=== PATIENT | male | born 1940 | race Caucasian/White ===

== ENCOUNTER → 2019-08-16 10:21 | Outpatient (REF) | payer OTHER, SELFPAY | LOC: ANHLAB 10:21 | PROVIDERS: PCP Internal Medicine; Visit Provider Nurse Practitioner | DX: D49.2 Neoplasm of unspecified behavior of bone, soft tissue, and skin (principal); C44.519 Basal cell carcinoma of skin of other part of trunk; C44.311 Basal cell carcinoma of skin of nose; C44.619 Basal cell carcinoma of skin of left upper limb, including shoulder | CPT/HCPCS: 88305 ==

== ENCOUNTER → 2019-09-19 07:56 | Outpatient (REF) | payer OTHER, SELFPAY | LOC: ANHLAB 07:56 | PROVIDERS: PCP Internal Medicine; Visit Provider Nurse Practitioner | DX: C44.519 Basal cell carcinoma of skin of other part of trunk (principal); C44.619 Basal cell carcinoma of skin of left upper limb, including shoulder | CPT/HCPCS: 88305; 88331; 88332 ==

== ENCOUNTER → 2019-10-03 07:59 | Outpatient (REF) | payer OTHER, SELFPAY | LOC: ANHLAB 07:59 | PROVIDERS: PCP Internal Medicine; Visit Provider Nurse Practitioner | DX: C44.311 Basal cell carcinoma of skin of nose (principal); C44.519 Basal cell carcinoma of skin of other part of trunk | CPT/HCPCS: 88305; 88331 ==

== ENCOUNTER → 2020-05-22 09:02 | Outpatient (REF) | payer OTHER, SELFPAY | LOC: ANHLAB 09:02 | PROVIDERS: PCP Internal Medicine; Visit Provider Nurse Practitioner | DX: L81.4 Other melanin hyperpigmentation (principal) | CPT/HCPCS: 88305 ==

== ENCOUNTER → 2020-11-27 08:21 | Outpatient (REF) | payer OTHER, SELFPAY | LOC: ANHLAB 08:21 | PROVIDERS: PCP Internal Medicine; Visit Provider Nurse Practitioner | DX: C44.212 Basal cell carcinoma of skin of right ear and external auricular canal (principal); C44.519 Basal cell carcinoma of skin of other part of trunk | CPT/HCPCS: 88305 ==

== ENCOUNTER → 2021-01-14 07:14 | Outpatient (REF) | payer OTHER, SELFPAY | LOC: ANHLAB 07:14 | PROVIDERS: PCP Internal Medicine; Visit Provider Nurse Practitioner | DX: C44.519 Basal cell carcinoma of skin of other part of trunk (principal); C44.319 Basal cell carcinoma of skin of other parts of face | CPT/HCPCS: 88305; 88331 ==

== ENCOUNTER 2021-02-05 12:27 | Outpatient (CLI) | payer OTHER, SELFPAY ==
[2021-02-05 13:57] LABS: SARS-CoV-2 RNA PCR Negative (Negative)
== END 2021-02-05 12:28 | disposition home or self-care (01) ==
PROVIDERS: PCP Internal Medicine; Visit Provider Internal Medicine
DX: R68.89 Other general symptoms and signs (principal); Z20.822 Contact with and (suspected) exposure to COVID-19
CPT/HCPCS: C9803; U0003; U0005

== ENCOUNTER 2021-02-12 09:03 | Outpatient (CLI) | payer OTHER, SELFPAY ==
[2021-02-12 11:16] LABS: SARS-CoV-2 RNA PCR Positive (Negative)
== END 2021-02-12 09:04 | disposition home or self-care (01) ==
LOC: CHSLAB 09:04
PROVIDERS: PCP Internal Medicine; Visit Provider Internal Medicine
DX: U07.1 COVID-19 (principal); R68.89 Other general symptoms and signs
CPT/HCPCS: C9803; U0003; U0005

== ENCOUNTER → 2021-04-30 14:13 | Outpatient (REF) | payer OTHER, SELFPAY | LOC: ANHLAB 14:13 | PROVIDERS: PCP Internal Medicine; Visit Provider Nurse Practitioner | DX: C44.519 Basal cell carcinoma of skin of other part of trunk (principal) | CPT/HCPCS: 88305 ==

== ENCOUNTER → 2021-06-10 07:45 | Outpatient (REF) | payer OTHER, SELFPAY | LOC: ANHLAB 07:45 | PROVIDERS: PCP Internal Medicine; Visit Provider Nurse Practitioner | DX: C44.519 Basal cell carcinoma of skin of other part of trunk (principal) | CPT/HCPCS: 88305; 88331 ==

== ENCOUNTER 2021-11-05 13:00 | Outpatient (NON) | payer OTHER, SELFPAY | END 2021-11-05 13:01 | disposition home or self-care (01) | PROVIDERS: PCP Family Medicine; Visit Provider Nurse Practitioner | DX: D22.62 Melanocytic nevi of left upper limb, including shoulder (principal) | CPT/HCPCS: 88305; 88342 ==

== ENCOUNTER 2022-04-08 10:04 | Outpatient (CLI) | payer OTHER, SELFPAY ==
[2022-04-08 19:17] LABS: Alanine Aminotransferase 33 U/L (6-50); Albumin Level 4.4 g/dL (3.5-5.1); Alkaline Phosphatase 71 U/L (38-126); Anion Gap 3 mmol/L (8-16); Aspartate Amino Transferase 47 U/L (17-59); Bilirubin,Total 0.7 mg/dL (0.2-1.3); Blood Urea Nitrogen 21 mg/dL (9-20); Calcium 9.2 mg/dL (8.4-10.2); Carbon Dioxide 29 mmol/L (22-30); Chloride 107 mmol/L (98-107); Cholesterol 164 mg/dL (0-200); Estimated Glomerular Filt Rate > 60; Glucose 86 mg/dL (65-110); HDL Direct 49 mg/dL; Potassium 4.5 mmol/L (3.4-5.0); Sodium 139 mmol/L (137-145); Triglycerides 67 mg/dL (<150)
[2022-04-08 19:28] LABS: LDL Cholesterol Direct 83 mg/dL
== END 2022-04-08 10:05 | disposition home or self-care (01) ==
LOC: ANHGOSHLAB 10:05
PROVIDERS: PCP Family Medicine; Visit Provider Family Medicine
DX: I10 Essential (primary) hypertension (principal); E78.5 Hyperlipidemia, unspecified; Z13.220 Encounter for screening for lipoid disorders
CPT/HCPCS: 36415; 80053; 80061

== ENCOUNTER 2022-05-06 08:00 | Outpatient (NON) | payer OTHER, SELFPAY | END 2022-05-06 08:01 | disposition home or self-care (01) | LOC: ANHLAB 05-09 11:06 | PROVIDERS: PCP Family Medicine; Visit Provider Nurse Practitioner | DX: L82.1 Other seborrheic keratosis (principal) | CPT/HCPCS: 88305 ==

== ENCOUNTER 2022-11-04 07:00 | Outpatient (NON) | payer OTHER, SELFPAY | END 2022-11-04 07:01 | disposition home or self-care (01) | PROVIDERS: PCP Family Medicine; Visit Provider Nurse Practitioner | DX: C44.42 Squamous cell carcinoma of skin of scalp and neck (principal); C44.519 Basal cell carcinoma of skin of other part of trunk | CPT/HCPCS: 88305; 88342 ==

== ENCOUNTER 2022-12-08 09:47 | Outpatient (CLI) | payer OTHER, SELFPAY | END 2022-12-08 09:48 | disposition home or self-care (01) | PROVIDERS: PCP Family Medicine; Visit Provider Family Medicine | DX: H91.93 Unspecified hearing loss, bilateral (principal) | CPT/HCPCS: 99199 ==

== ENCOUNTER 2022-12-22 12:53 | Outpatient (NON) | payer OTHER, SELFPAY | END 2022-12-22 12:54 | disposition home or self-care (01) | LOC: ANHLAB 12:53 | PROVIDERS: PCP Family Medicine; Visit Provider Nurse Practitioner | DX: C44.42 Squamous cell carcinoma of skin of scalp and neck (principal); C44.519 Basal cell carcinoma of skin of other part of trunk | CPT/HCPCS: 88305; 88331; 88342 ==

== ENCOUNTER 2023-01-06 11:56 | Outpatient (NON) | payer OTHER, SELFPAY | END 2023-01-06 11:57 | disposition home or self-care (01) | LOC: ANHLAB 01-07 11:58 | PROVIDERS: PCP Family Medicine; Visit Provider Surgery Plastic and Reconstructive Surgery | DX: D03.9 Melanoma in situ, unspecified (principal) | CPT/HCPCS: 88305 ==

== ENCOUNTER 2023-01-30 07:46 | Outpatient (CLI) | payer OTHER, SELFPAY | END 2023-01-30 07:47 | disposition home or self-care (01) | LOC: ANHAUDIO 07:46 | PROVIDERS: PCP Family Medicine; Visit Provider Family Medicine | DX: H91.93 Unspecified hearing loss, bilateral (principal) | CPT/HCPCS: 92557; 92567 ==

== ENCOUNTER 2023-04-09 08:16 | Outpatient (CLI) | payer OTHER, SELFPAY ==
[2023-04-09 12:46] LABS: Alanine Aminotransferase 30 U/L (6-50); Albumin Level 4.1 g/dL (3.5-5.1); Alkaline Phosphatase 60 U/L (38-126); Anion Gap 6 mmol/L (8-16); Aspartate Amino Transferase 63 U/L (17-59); Bilirubin,Total 0.7 mg/dL (0.2-1.3); Blood Urea Nitrogen 22 mg/dL (9-20); Carbon Dioxide 28 mmol/L (22-30); Chloride 108 mmol/L (98-107); Cholesterol 141 mg/dL (0-200); Estimated Glomerular Filt Rate 58; Glucose 96 mg/dL (65-110); HDL Direct 45 mg/dL; Potassium 4.4 mmol/L (3.4-5.0); Sodium 142 mmol/L (137-145); Triglycerides 48 mg/dL (<150)
[2023-04-09 12:56] LABS: LDL Cholesterol Direct 80 mg/dL
== END 2023-04-09 08:17 | disposition home or self-care (01) ==
LOC: ANHGOSHLAB 08:18
PROVIDERS: PCP Family Medicine; Visit Provider Family Medicine
DX: L40.9 Psoriasis, unspecified (principal); Z13.220 Encounter for screening for lipoid disorders; Z13.228 Encounter for screening for other metabolic disorders
CPT/HCPCS: 36415; 80053; 80061

== ENCOUNTER 2024-02-05 09:10 | Outpatient (CLI) | payer OTHER, SELFPAY ==
[2024-02-05 12:24] LABS: Alanine Aminotransferase 25 U/L (6-50); Albumin Level 3.9 g/dL (3.5-5.1); Alkaline Phosphatase 60 U/L (38-126); Anion Gap 2 mmol/L (4-12); Aspartate Amino Transferase 41 U/L (17-59); Bilirubin,Total 0.6 mg/dL (0.2-1.3); Blood Urea Nitrogen 23 mg/dL (9-20); Calcium 9.2 mg/dL (8.4-10.2); Carbon Dioxide 27 mmol/L (22-30); Chloride 111 mmol/L (98-107); Cholesterol 218 mg/dL (0-200); Estimated Glomerular Filt Rate 58; Glucose 99 mg/dL (65-110); HDL Direct 52 mg/dL; Potassium 4.5 mmol/L (3.4-5.0); Sodium 140 mmol/L (137-145); Triglycerides 81 mg/dL (<150)
[2024-02-05 12:35] LABS: LDL Cholesterol Direct 123 mg/dL
== END 2024-02-05 09:11 | disposition home or self-care (01) ==
LOC: ANHGOSHLAB 09:11
PROVIDERS: PCP Family Medicine; Visit Provider Family Medicine
DX: E78.5 Hyperlipidemia, unspecified (principal); Z13.228 Encounter for screening for other metabolic disorders
CPT/HCPCS: 36415; 80053; 80061

== ENCOUNTER 2024-03-11 15:18 | Emergency (ER) | payer OTHER, SELFPAY ==
--- NOTE | ~2024-03-11 | XR_ITS ---
EXAMINATION: XR hand LT min 3V DATE: 03/11/2024 16:00 INDICATION: Lacerations at the third and fourth digits TECHNIQUE: Posteroanterior, oblique and lateral views of the left hand were obtained. COMPARISON: 04/03/2017 FINDINGS: A ring obscures a portion of the mid diaphysis of the fourth proximal phalanx. Soft tissue swelling a nd bandaging material about the mid to distal phalanges of the third and fourth digits. Chronic parti al amputation of the first distal phalanx with now corticated margin to the remaining bone at the bas e of the distal phalanx. Bone alignment is otherwise normal. No acute fractures. Polyarticular osteoa rthritis, moderate severity at the first interphalangeal and second-fifth distal interphalangeal join ts and mild at the remaining interphalangeal joints, the first metacarpophalangeal joint and at the m idcarpal, triscaphe and first carpal metacarpal joints. No radiopaque foreign bodies. IMPRESSION: 1. 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 No acute osseous abnormality. 2. 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 Reviewed, dictated and finalized at location [facility]. [facility] IMPRESSION: 1. 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 No acute osseou s abnormality. 2. 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
--- OUTSIDE RECORDS SUMMARY | 2024-03-11 15:19 | XMS_ITS | Continuity of Care Document ---
Author Organization [facility] Address [address] [place] [address] [address] [place] [address] Phone Care Team Providers Care Varnish Remover Name Role Phone Tania Gibbons Unavailable Unavailable Procedures Procedure Date Office/outpatient Visit, [facility] Advance Directives Directive Yes / No Effective Date File Name No Information Encounters Encounter Description Practice Location Reason(s) For Visit Diagnoses Date Provider Providers Copied on Encounter Office/outpat ient Visit, [facility], [address] [place] [address] [address], [place], [place], [id number], tel:[phone] [facility] No Information [address] , [address], [place], [place], [facility], [place]. tel:[phone] Referring Provider: Lux Harris MD, [address] [place], [place], [facility]. tel:[phone] Family History Family Member Type Diagnosis Age At Onset No Information Payers Payer name Insurance type Covered libertarian ID Authoriza tion(s) [place] [id number] Social History Type Description Quantity Date Captured Comments Sex Male Smoking Status No Information Chief Complaint And Reason For Visit No Information Reason For Referral Reason For Referral No Information History Of Present Illness Encounter Date Complaint History Of Prese nt Illness No Information Functional Status Date Functional Assessmen t No Information Instructions Date Instruction Additional Infor mation No Information Assessments Type Assessment Date No Information Patient Care Teams Name Effective Dates (start - stop) Status Members No Information
[2024-03-11 15:27] VITALS: BP 155/76; PULSE 79; RESP 16; TEMP 36.1; O2SAT 97
--- NOTE | 2024-03-11 15:44 | ED.WOUNDLAC ---
HPI - Wound/Laceration General Chief Complaint: Wound/Laceration <Maribel Ritter PA-C - Last Filed: 03/12/24 16:44> Stated Complaint: I cut 2 fingers on a table saw <Maribel Ritter PA-C - Last Filed: 03/12/24 16:44> Time Seen by Provider: 03/11/24 15:44 <Maribel Ritter PA-C - Last Filed: 03/12/24 16:44> Focused HPI: This is a 83 year old male that presents to the ER for laceration to 3rd and 4th fingers sustained via a table saw. Unsure last tetanus vaccination. GENERAL: Well-appearing, well-nourished, and in no acute distress. HEAD: Normocephalic, atraumatic. CHEST: No respiratory distress. HEART: Regular rate NEURO: ?Alert and oriented x3. Patient screened in triage and initial orders placed.? ?Additional care and disposition to be based upon?diagnostic testing and treatment. <Maribel Ritter PA-C - Last Filed: 03/12/24 16:44> History of Present Illness HPI narrative: Agree the HPI. Lacerations the 3rd and 4th digits the left hand palmar aspect of finger tips. Unknown last tetanus which will be updated here. No numbness or tingling in his fingers. No blood thinners. Was using a table saw. <Will Howe MD - Last Filed: 03/12/24 07:11> Related Data Allergies/Adverse Reactions: Allergies Allergy/AdvReac Type Severity Reaction Status Date / Time Sulfa (Sulfonamide Allergy Mild rash Verified 03/11/24 15:19 Antibiotics) <Maribel Ritter PA-C - Last Filed: 03/12/24 16:44> Review of Systems Constitutional: Constitutional: Reports no additional constitutional complaints <Will Howe MD - Last Filed: 03/12/24 07:11> Musculoskeletal: Musculoskeletal: Reports no additional musculoskeletal complaints <Will Howe MD - Last Filed: 03/12/24 07:11> Neurologic: Reports system reviewed and no additional complaints, except as documented <Will Howe MD - Last Filed: 03/12/24 07:11> PMFSH Past Medical History Medical History: Medical History (Updated 03/12/24 @ 16:44 by Maribel Ritter PA-C) Enlarged prostate <Maribel Ritter PA-C - Last Filed: 03/12/24 16:44> Surgical History Surgical History: Surgical History History of knee surgery 2002 History of prostate surgery 2007 <Maribel Ritter PA-C - Last Filed: 03/12/24 16:44> Family History Family History: Family History Mother Diabetes mellitus <Maribel Ritter PA-C - Last Filed: 03/12/24 16:44> Social History Social History: Social History Social History: former smoker Smoking status: Never smoker Second hand tobacco smoke exposure: No Smoking end date: 02/10/04 Alcohol intake: current Lack of Transportation: No Lack of Food: Never True Current Housing: I Have Housing Concerned About Future Housing: No Difficulty Paying Gas/Electric Bills: No Difficulty Paying for Meds: No Currently Unemployed: No Education: Trade/Vocational Certificate Difficulty w/ Childcare or Family Care: No <Maribel Ritter PA-C - Last Filed: 03/12/24 16:44> Exam Narrative: GENERAL: Well-appearing, well-nourished, and in no acute distress. HEAD: Normocephalic, atraumatic. HEART: Regular rate and rhythm. Normal peripheral pulses. EXTREMITIES: Left hand exam with multiple lacerations. Left 3rd digit has a 1 cm laceration over the middle phalanx palmar aspect that is oozing blood. There is a complex macerated laceration to the 3rd finger tip sparing the nail bed that is 2 cm by 1.5 cm. The 4th digit finger tip has a large chunk missing and has a 2 x 1.5 cm laceration as well. Both fingers are neurovascularly intact, no bone is seen in a bloodless field, full range of motion at PIP and DIP. SKIN: Warm, dry, no rash. NEURO: Alert and oriented x3. PSYCH: Normal mood and affect. <Will Howe MD - Last Filed: 03/12/24 07:11> Course Course Emergency Course: There is a scant amount tissue work with on each finger and we have closed it the best we could. Xeroform applied as well as a non adherent. Will give PCP follow-up. Discussed healing by secondary intention. Will also place on antibiotic as a caution since he is working with wood. Tetanus updated <Will Howe MD - Last Filed: 03/12/24 07:11> Vital Signs Vital signs: Vital Signs Temperature 97 F L 03/11/24 15:27 Pulse Rate 79 03/11/24 15:27 Respiratory Rate 16 03/11/24 15:27 Blood Pressure 155/76 H 03/11/24 15:27 Pulse Oximetry 97 03/11/24 15:27 Temperature 97 F L 03/11/24 15:27 Pulse Rate 79 03/11/24 15:27 Respiratory Rate 16 03/11/24 15:27 Blood Pressure 155/76 H 03/11/24 15:27 Pulse Oximetry 97 03/11/24 15:27 <Maribel Ritter PA-C - Last Filed: 03/12/24 16:44> Vital Signs Temperature 97 F L 03/11/24 15:27 Pulse Rate 79 03/11/24 15:27 Respiratory Rate 16 03/11/24 15:27 Blood Pressure 155/76 H 03/11/24 15:27 Pulse Oximetry 97 03/11/24 15:27 Temperature 97 F L 03/11/24 15:27 Pulse Rate 79 03/11/24 15:27 Respiratory Rate 16 03/11/24 15:27 Blood Pressure 155/76 H 03/11/24 15:27 Pulse Oximetry 97 03/11/24 15:27 <Will Howe MD - Last Filed: 03/12/24 07:11> Procedures Laceration Laceration 1: Date: 03/11/24 <Will Howe MD - Last Filed: 03/12/24 07:11> Site: other (3rd finger) <Will Howe MD - Last Filed: 03/12/24 07:11> Side (If applicable): left <Will Howe MD - Last Filed: 03/12/24 07:11> Size (cm): 2 <Will Howe MD - Last Filed: 03/12/24 07:11> Description: stellate and irregular <Will Howe MD - Last Filed: 03/12/24 07:11> Local Anesthetic: lidocaine 1% and with epi <Will Howe MD - Last Filed: 03/12/24 07:11> Amount of anesthesia used (mL): 1.5 <Will Howe MD - Last Filed: 03/12/24 07:11> Pre-repair: wound explored and irrigated extensively <Will Howe MD - Last Filed: 03/12/24 07:11> ====== Skin Level ======: Skin layer closed with: nylon <Will Howe MD - Last Filed: 03/12/24 07:11> Size (cm): 5-0 <Will Howe MD - Last Filed: 03/12/24 07:11> Number of sutures: 10 <Will Howe MD - Last Filed: 03/12/24 07:11> Technique: simple, interrupted <Will Howe MD - Last Filed: 03/12/24 07:11> ====== Subcutaneous Layer ======: ====== Muscle Layer ======: ====== Tendon Layer ======: Laceration 2: Date: 03/11/24 <Will Howe MD - Last Filed: 03/12/24 07:11> Site: other (4th digit) <Will Howe MD - Last Filed: 03/12/24 07:11> Side (If applicable): left <Will Howe MD - Last Filed: 03/12/24 07:11> Size (cm): 2 <Will Howe MD - Last Filed: 03/12/24 07:11> Description: flap <Will Howe MD - Last Filed: 03/12/24 07:11> Depth: simple, single layer <Will Howe MD - Last Filed: 03/12/24 07:11> Local Anesthetic: lidocaine 1% and with epi <Will Howe MD - Last Filed: 03/12/24 07:11> Amount of anesthesia used (mL): 1.5 <Will Howe MD - Last Filed: 03/12/24 07:11> ====== Skin Level ======: Skin layer closed with: nylon <Will Howe MD - Last Filed: 03/12/24 07:11> Size (cm): 5-0 <Will Howe MD - Last Filed: 03/12/24 07:11> Number of sutures: 2 <Will Howe MD - Last Filed: 03/12/24 07:11> Technique: simple, interrupted <Will Howe MD - Last Filed: 03/12/24 07:11> ====== Subcutaneous Layer ======: ====== Muscle Layer ======: ====== Tendon Layer ======: MDM - Wound/Laceration Imaging Data Radiologist's impression: ITS Impressions Hand X-Ray 03/11/24 16:31 IMPRESSION: 1. 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 No acute osseous abnormality. 2. 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 <Maribel Ritter PA-C - Last Filed: 03/12/24 16:44> Critical Care Time Critical Care Time Critical Care Time: No <HARI Espinoza Last Filed: 03/12/24 16:44> Discharge Plan Discharge Clinical Impression: Laceration of finger Qualifiers: Encounter type: initial encounter Finger: unspecified finger Damage to nail status: without damage Foreign body presence: without foreign body Laterality: left Qualified Code(s): S61.219A - Laceration without foreign body of unspecified finger without damage to nail, initial encounter <HAIR Espinoza Last Filed: 03/12/24 16:44> Patient Disposition: Home, Self-Care <HARI Espinoza Last Filed: 03/12/24 16:44> Condition: Stable <Maribel Ritter PA-C - Last Filed: 03/12/24 16:44> Instructions: Laceration (ED) <Maribel Ritter PA-C - Last Filed: 03/12/24 16:44> Additional Instructions: Return to the ER if her fingers are red and hot, there draining pus, you have red streaking up your hand, have additional concerns. <Maribel Ritter PA-C - Last Filed: 03/12/24 16:44> Patient Language: [place] <Maribel Ritter PA-C - Last Filed: 03/12/24 16:44> Prescriptions: New amoxicillin-pot clavulanate 875-125 mg tablet 1 tablet PO Q12H Qty: 20 0RF No Action amlodipine 2.5 mg tablet 2.5 mg PO DAILY Qty: 90 2RF <Maribel Ritter PA-C - Last Filed: 03/12/24 16:44> Follow-up/Referrals: Cesar,Luis M Boyer DO [Non-Staff] - Edwin Roland MD [Physician] - 1 Week <Maribel Ritter PA-C - Last Filed: 03/12/24 16:44>
[2024-03-11] MEDS: TETANUS,DIPHTHERIA,AC PERTUSSIS ADULT (0.5 ML) BOOSTRIX IM (19:16)
--- OUTSIDE RECORDS SUMMARY | 2024-03-11 21:16 | XMS_ITS | Continuity of Care Document ---
Author Organization [facility] Address [address] [place] [address] [address] [place] [address] Phone Care Team Providers Care Residential Care Officer Name Role Phone Tania Gibbons Unavailable Unavailable Procedures Procedure Date Office/outpatient Visit, [facility] Advance Directives Directive Yes / No Effective Date File Name No Information Encounters Encounter Description Practice Location Reason(s) For Visit Diagnoses Date Provider Providers Copied on Encounter Office/outpat ient Visit, [facility], [address] [place] [address] [address], [place], [place], [id number], tel:[phone] [facility] No Information [address] , [address], [place], [place], [facility], [place]. tel:[phone] Referring Provider: Lux Harris MD, [address] [place], [place], [facility]. tel:[phone] Family History Family Member Type Diagnosis Age At Onset No Information Payers Payer name Insurance type Covered green party ID Authoriza tion(s) [place] [id number] Social History Type Description Quantity Date Captured [...]
[2024-03-11] MEDS: LIDO 1%/EPINEPHRINE 1:100,000 20 ML VIAL (22:44)
--- NOTE | 2024-03-11 22:48 | PC.NURSE ---
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 Also verified via phone that his stitches needed to be taken out in 2-3 weeks. Pt and were both educated in person about wound care and return precautions should he run into any issues. Both verbalized and demonstrated understanding of wound care.
== END 2024-03-11 22:53 | disposition home or self-care (01) ==
PROVIDERS: Emergency Provider Emergency Medicine
DX: S61.213A Laceration without foreign body of left middle finger without damage to nail, initial encounter (principal); S61.215A Laceration without foreign body of left ring finger without damage to nail, initial encounter; Z23 Encounter for immunization; N40.0 Benign prostatic hyperplasia without lower urinary tract symptoms; Z87.891 Personal history of nicotine dependence; M19.042 Primary osteoarthritis, left hand; M18.9 Osteoarthritis of first carpometacarpal joint, unspecified; W31.2XXA Contact with powered woodworking and forming machines, initial encounter
CPT/HCPCS: 12002; 73130; 90471; 90715; 99283; J2004

== ENCOUNTER 2024-04-07 17:33 | Emergency (ER) | payer OTHER, SELFPAY ==
[2024-04-07 17:51] VITALS: BP 141/64; PULSE 66; RESP 20; TEMP 36.4; O2SAT 99
[2024-04-07 18:07] VITALS: BP 144/71; PULSE 60; RESP 15; O2SAT 98
--- NOTE | 2024-04-07 18:07 | PC.NURSE ---
Pt family approached senior front end developer stating they are worried about pt, RN went out and re-assessed pt. Pt A&Ox3, vitals updated, and EDP Maribel Ritter made aware of pt and pt family concerns
--- NOTE | 2024-04-07 18:08 | ED.SEIZURE ---
HPI - Seizure General Chief Complaint: Seizure <Maribel Ritter PA-C - Last Filed: 04/08/24 10:16> Stated Complaint: I think I had a seizure reports sz free for 3 yr <Maribel Ritter PA-C - Last Filed: 04/08/24 10:16> Time Seen by Provider: 04/07/24 18:08 <Maribel Ritter PA-C - Last Filed: 04/08/24 10:16> Focused HPI: This is a 83 year old male that presents to the ER for paresthesias in his right hand. Reports this started around 5 tonight. Also reports tingling on the right side of his face. Reports he had similar symptoms like this before and initially was thought to be a stroke, but it ended up being seizures. GENERAL: Well-appearing, well-nourished, and in no acute distress. HEAD: Normocephalic, atraumatic. CHEST: Clear to auscultation. ?No respiratory distress. HEART: Regular rate and rhythm.? NEURO: ?Alert and oriented x3. Normal gait. Strength equal in bilateral upper extremities (5/5) Patient screened in triage and initial orders placed.? ?Additional care and disposition to be based upon?diagnostic testing and treatment. <Maribel Ritter PA-C - Last Filed: 04/08/24 10:16> History of Present Illness HPI Narrative: I agree with the assessment and documentation of Maribel Ritter PA-C. <Paola James APRN - Last Filed: 04/08/24 02:07> Related Data Allergies/Adverse Reactions: Allergies Allergy/AdvReac Type Severity Reaction Status Date / Time Sulfa (Sulfonamide Allergy Mild rash Verified 04/07/24 17:35 Antibiotics) <Maribel Ritter PA-C - Last Filed: 04/08/24 10:16> Review of Systems Review of Systems: All systems reviewed & are unremarkable except as noted in HPI and below <Paola James APRN - Last Filed: 04/08/24 02:07> PMFSH Past Medical History Medical History: Medical History (Updated 04/08/24 @ 02:06 by Paola James APRN) Enlarged prostate <Maribel Ritter PA-C - Last Filed: 04/08/24 10:16> Surgical History Surgical History: Surgical History History of knee surgery 2002 History of prostate surgery 2007 <Maribel Ritter PA-C - Last Filed: 04/08/24 10:16> Family History Family History: Family History Mother Diabetes mellitus <Maribel Ritter PA-C - Last Filed: 04/08/24 10:16> Social History Social History: Social History Social History: former smoker Smoking status: Never smoker Second hand tobacco smoke exposure: No Smoking end date: 02/10/04 Alcohol intake: current Lack of Transportation: No Lack of Food: Never True Current Housing: I Have Housing Concerned About Future Housing: No Difficulty Paying Gas/Electric Bills: No Difficulty Paying for Meds: No Currently Unemployed: No Education: Trade/Vocational Certificate Difficulty w/ Childcare or Family Care: No <Maribel Ritter PA-C - Last Filed: 04/08/24 10:16> Exam Narrative: GENERAL: Well appearing, well-nourished, non-toxic, in no acute distress. HEAD: Normocephalic, atraumatic. NECK: Supple. No adenopathy, no masses. RESPIRATORY: Airway patent, respirations nonlabored. Clear to auscultation bilaterally, no rales, rhonchi, wheezing. CARDIOVASCULAR: Regular rate and rhythm without murmurs, rubs, or gallops. Peripheral pulses 2+ and equal bilaterally. ABDOMINAL: Soft, nontender, nondistended, no hepatosplenomegaly. Normoactive BS. MUSCULOSKELETAL: Moves all extremities. Strength/ROM intact without gross deformities. SKIN: Warm, dry, normal color. No rashes. NEURO: A&O X3. Speech clear. Cranial nerves II-XII grossly intact. No ataxic movements. PSYCHIATRIC: Appropriate mood and affect. Normal interaction. <Paola James APRN - Last Filed: 04/08/24 02:07> Course Vital Signs Vital signs: Vital Signs Temperature 97.6 F 04/07/24 17:51 Pulse Rate 66 04/07/24 17:51 Respiratory Rate 20 04/07/24 17:51 Blood Pressure 141/64 H 04/07/24 17:51 Pulse Oximetry 99 04/07/24 17:51 Oxygen Delivery Room Air 04/07/24 17:51 Temperature 97.7 F 04/07/24 23:15 Pulse Rate 71 04/08/24 02:21 Respiratory Rate 15 04/08/24 02:21 Blood Pressure 172/83 H 04/08/24 02:21 Pulse Oximetry 100 04/08/24 02:21 Oxygen Delivery Room Air 04/07/24 23:25 <Maribel Ritter PA-C - Last Filed: 04/08/24 10:16> Vital Signs Temperature 97.6 F 04/07/24 17:51 Pulse Rate 66 04/07/24 17:51 Respiratory Rate 20 04/07/24 17:51 Blood Pressure 141/64 H 04/07/24 17:51 Pulse Oximetry 99 04/07/24 17:51 Oxygen Delivery Room Air 04/07/24 17:51 Temperature 97.7 F 04/07/24 23:15 Pulse Rate 71 04/08/24 02:21 Respiratory Rate 15 04/08/24 02:21 Blood Pressure 172/83 H 04/08/24 02:21 Pulse Oximetry 100 04/08/24 02:21 Oxygen Delivery Room Air 04/07/24 23:25 <Paola James APRN - Last Filed: 04/08/24 02:07> MDM - Seizure MDM Narrative Medical decision making narrative: This is a 83 year old male that presents to the ER for paresthesias in his right hand. Reports this started around 5 tonight. Also reports tingling on the right side of his face. Reports he had similar symptoms like this before and initially was thought to be a stroke, but it ended up being seizures. Labs Ordered: CBC, CMP, coags, Imaging Ordered: CT brain, chest x-ray Medications Ordered: Keppra 500 mg p.o. Results: Pt's CT brain indicates No acute intracranial findings. 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 His chest x-ray indicates No acute cardiopulmonary pathology. Diagnosis: Atypical seizure-like symptoms Consults: Neurology-spoke with neurologist. He agreed with plan for patient to be discharged home but suggested patient be given a dose of Keppra here in the ER and sent home with a prescription of Keppra 500 mg b.i.d. Patient Education/Shared MDM: Results shared with patient. He and his are in agreement with plan. Patient strongly advised to follow-up with neurology as soon as possible. He will be discharged home with prescription for Keppra 500mg BID. Strict return precautions provided. Patient verbalized understanding is in agreement with plan. Vital signs stable at time of discharge. All questions answered. <Paola James APRN - Last Filed: 04/08/24 02:07> Differential Diagnosis Differential diagnosis: Likely intractable seizure disorder, focal seizure, generalized seizure, new onset seizure and epileptic seizure <Paola James APRN - Last Filed: 04/08/24 02:07> Lab Data Attestation: I reviewed the patient's lab results. <Paola James APRN - Last Filed: 04/08/24 02:07> Result diagrams: 04/07/24 19:47 04/07/24 19:47 <Maribel Ritter PA-C - Last Filed: 04/08/24 10:16> Labs: Lab Results 04/07/24 Range/Units 19:47 WBC 7.3 (4.5-10.0) K/mm3 RBC 4.11 L (4.6-6.20) M/mm3 Hgb 13.8 L (14.0-18.0) g/dL Hct 40.4 L (42.0-52.0) % MCV 98.3 (80-100) fl MCH 33.6 (26-34) pg MCHC 34.2 (32-36) g/dl RDW 13.8 (11.5-14.5) % Plt Count 233 (150-375) k/mm3 MPV 11.0 H (7.4-10.4) fl Immature Gran % (Auto) 0.3 (0-0.5) % Neut % (Auto) 60.3 (45.5-73.1) % Lymph % (Auto) 26.0 (18.3-44.2) % Mcdonald % (Auto) 8.9 H (2.6-8.5) % Eos % (Auto) 3.7 (0-4.4) % Baso % (Auto) 0.8 (0.2-1.2) % Lymph # (Auto) 1.90 (0.9-3.2) K/mm3 Mcdonald # (Auto) 0.7 H (0.1-0.6) K/mm3 Eos # (Auto) 0.3 (0-0.3) K/mm3 Baso # (Auto) 0.1 (0.0-0.1) K/mm3 Abs Immat Gran (auto) 0.02 (0.00-0.031) K/mm3 Absolute Neuts (auto) 4.4 (1.3-6.7) K/mm3 Absolute Nucleated RBC 0.000 (0.0-0.012) K/mm3 Nucleated RBC % 0.0 (0.0-0.2) % PT 13.0 (11.1-14.7) Seconds INR 0.9 APTT 28.1 (22.3-36.8) Seconds Sodium 139 (137-145) mmol/L Potassium 3.9 (3.4-5.0) mmol/L Chloride 105 (98-107) mmol/L Carbon Dioxide 27 (22-30) mmol/L Anion Gap 7 (4-12) mmol/L BUN 23 H (9-20) mg/dL Creatinine 1.03 (0.7-1.3) mg/dL Estim Creat Clear Calc 47 ml/min Estimated GFR > 60 (59 - ) Glucose 89 (65-110) mg/dL Calcium 9.3 (8.4-10.2) mg/dL Total Bilirubin 0.5 (0.2-1.3) mg/dL AST 24 (17-59) U/L ALT 21 (6-50) U/L Alkaline Phosphatase 60 (38-126) U/L Troponin I < 0.012 (0.000-0.034) ng/mL Total Protein 7.0 (6.3-8.2) g/dL Albumin 4.1 (3.5-5.1) g/dL <Maribel Ritter PA-C - Last Filed: 04/08/24 10:16> Lab Results 04/07/24 Range/Units 19:47 WBC 7.3 (4.5-10.0) K/mm3 RBC 4.11 L (4.6-6.20) M/mm3 Hgb 13.8 L (14.0-18.0) g/dL Hct 40.4 L (42.0-52.0) % MCV 98.3 (80-100) fl MCH 33.6 (26-34) pg MCHC 34.2 (32-36) g/dl RDW 13.8 (11.5-14.5) % Plt Count 233 (150-375) k/mm3 MPV 11.0 H (7.4-10.4) fl Immature Gran % (Auto) 0.3 (0-0.5) % Neut % (Auto) 60.3 (45.5-73.1) % Lymph % (Auto) 26.0 (18.3-44.2) % Mcdonald % (Auto) 8.9 H (2.6-8.5) % Eos % (Auto) 3.7 (0-4.4) % Baso % (Auto) 0.8 (0.2-1.2) % Lymph # (Auto) 1.90 (0.9-3.2) K/mm3 Mcdonald # (Auto) 0.7 H (0.1-0.6) K/mm3 Eos # (Auto) 0.3 (0-0.3) K/mm3 Baso # (Auto) 0.1 (0.0-0.1) K/mm3 Abs Immat Gran (auto) 0.02 (0.00-0.031) K/mm3 Absolute Neuts (auto) 4.4 (1.3-6.7) K/mm3 Absolute Nucleated RBC 0.000 (0.0-0.012) K/mm3 Nucleated RBC % 0.0 (0.0-0.2) % PT 13.0 (11.1-14.7) Seconds INR 0.9 APTT 28.1 (22.3-36.8) Seconds Sodium 139 (137-145) mmol/L Potassium 3.9 (3.4-5.0) mmol/L Chloride 105 (98-107) mmol/L Carbon Dioxide 27 (22-30) mmol/L Anion Gap 7 (4-12) mmol/L BUN 23 H (9-20) mg/dL Creatinine 1.03 (0.7-1.3) mg/dL Estim Creat Clear Calc 47 ml/min Estimated GFR > 60 (59 - ) Glucose 89 (65-110) mg/dL Calcium 9.3 (8.4-10.2) mg/dL Total Bilirubin 0.5 (0.2-1.3) mg/dL AST 24 (17-59) U/L ALT 21 (6-50) U/L Alkaline Phosphatase 60 (38-126) U/L Troponin I < 0.012 (0.000-0.034) ng/mL Total Protein 7.0 (6.3-8.2) g/dL Albumin 4.1 (3.5-5.1) g/dL <Paola James APRN - Last Filed: 04/08/24 02:07> Imaging Data Attestation: I personally reviewed and interpreted this imaging study as follows: <Paola James APRN - Last Filed: 04/08/24 02:07> Radiologist's impression: Impressions Chest X-Ray 04/07/24 19:01 IMPRESSION: No acute cardiopulmonary pathology. Head CT 04/07/24 19:09 IMPRESSION: No acute intracranial findings. 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 <Paola James APRN - Last Filed: 04/08/24 02:07> Critical Care Time Critical Care Time Critical Care Time: No <Maribel Ritter PA-C - Last Filed: 04/08/24 10:16> Discharge Plan Discharge Clinical Impression: Focal seizure <HARI Espinoza Last Filed: 04/08/24 10:16> Patient Disposition: Home, Self-Care <Maribel Ritter PA-C - Last Filed: 04/08/24 10:16> Condition: Stable <HARI Espinoza Last Filed: 04/08/24 10:16> Instructions: Antibiotic Form, Nonepileptic Seizures (ED) <Maribel Ritter PA-C - Last Filed: 04/08/24 10:16> Additional Instructions: Please return to the ER with an worsening symptoms. Follow-up with primary care provider in the next 2-3 days and neurology as soon as possible. Take all medications as prescribed. <Maribel Ritter PA-C - Last Filed: 04/08/24 10:16> Patient Language: Turkish <Maribel Ritter PA-C - Last Filed: 04/08/24 10:16> Prescriptions: New levetiracetam [Keppra] 500 mg tablet 500 mg PO BID Qty: 60 0RF No Action amlodipine 2.5 mg tablet 2.5 mg PO DAILY Qty: 90 2RF amoxicillin-pot clavulanate 875-125 mg tablet 1 tablet PO Q12H Qty: 20 0RF <Maribel Ritter PA-C - Last Filed: 04/08/24 10:16> Follow-up/Referrals: Nehemias Muhammad MD [Primary Care Provider] - Justice Acosta MD [Physician] - (neurology) <Maribel Ritter PA-C - Last Filed: 04/08/24 10:16> Time of Disposition: 02:06 <Maribel Ritter PA-C - Last Filed: 04/08/24 10:16> 02:06 <Paola James APRN - Last Filed: 04/08/24 02:07>
[2024-04-07 19:39] VITALS: BP 152/72; PULSE 56; RESP 18; TEMP 36.7; O2SAT 97
[2024-04-07 19:57] LABS: Basophils Absolute Auto 0.1 K/mm3 (0.0-0.1); Basophils Percent Auto 0.8 % (0.2-1.2); Eosinophils Absolute Auto 0.3 K/mm3 (0-0.3); Eosinophils Percent Auto 3.7 % (0-4.4); Hematocrit 40.4 % (42.0-52.0); Hemoglobin 13.8 g/dL (14.0-18.0); Immature Granulocyte Absolute 0.02 K/mm3 (0.00-0.031); Immature Granulocyte Percent A 0.3 % (0-0.5); Mean Corpuscular HGB Conc 34.2 g/dl (32-36); Mean Corpuscular Hemoglobin 33.6 pg (26-34); Mean Corpuscular Volume 98.3 fl (80-100); Monocytes Absolute Auto 0.7 K/mm3 (0.1-0.6); Monocytes Percent Auto 8.9 % (2.6-8.5); Neutrophils Absolute Auto 4.4 K/mm3 (1.3-6.7); Neutrophils Percent Auto 60.3 % (45.5-73.1); Platelet Count Result 233 k/mm3 (150-375); Red Blood Count 4.11 M/mm3 (4.6-6.20); Red Cell Distribution Width 13.8 % (11.5-14.5); White Blood Count 7.3 K/mm3 (4.5-10.0)
[2024-04-07 20:09] LABS: Alanine Aminotransferase 21 U/L (6-50); Albumin Level 4.1 g/dL (3.5-5.1); Alkaline Phosphatase 60 U/L (38-126); Anion Gap 7 mmol/L (4-12); Aspartate Amino Transferase 24 U/L (17-59); Bilirubin,Total 0.5 mg/dL (0.2-1.3); Blood Urea Nitrogen 23 mg/dL (9-20); Calcium 9.3 mg/dL (8.4-10.2); Carbon Dioxide 27 mmol/L (22-30); Chloride 105 mmol/L (98-107); Estimated CRCL calculation 47 ml/min; Estimated Glomerular Filt Rate > 60; Glucose 89 mg/dL (65-110); Potassium 3.9 mmol/L (3.4-5.0); Sodium 139 mmol/L (137-145)
[2024-04-07 20:14] LABS: INR 0.9; Partial Thromboplastin Time 28.1 Seconds (22.3-36.8)
[2024-04-07 20:21] LABS: Troponin I < 0.012 ng/mL (0.000-0.034)
[2024-04-07 23:15] VITALS: BP 172/83; PULSE 68; RESP 14; TEMP 36.5; O2SAT 97
[2024-04-07 23:25] VITALS: PULSE 56; O2SAT 100
[2024-04-07 23:26] VITALS: BP 162/79; PULSE 56; RESP 14; O2SAT 100
[2024-04-08 00:39] VITALS: BP 172/83; PULSE 67; RESP 19; O2SAT 100
[2024-04-08] MEDS: levETIRAcetam 500 MG TABLET PO (00:48)
[2024-04-08 02:21] VITALS: BP 172/83; PULSE 71; RESP 15; O2SAT 100
== END 2024-04-08 02:22 | disposition home or self-care (01) ==
PROVIDERS: Physician Assistant; Emergency Provider Registered Nurse; PCP Family Medicine
DX: R56.9 Unspecified convulsions (principal); N40.0 Benign prostatic hyperplasia without lower urinary tract symptoms; Z87.891 Personal history of nicotine dependence; Z79.899 Other long term (current) drug therapy; R00.1 Bradycardia, unspecified; D18.1 Lymphangioma, any site
CPT/HCPCS: 36415; 70450; 71046; 80053; 84484; 85025; 85610; 85730; 93005; 99284; A9270

== ENCOUNTER 2024-08-15 11:02 | Outpatient (CLI) | payer OTHER, SELFPAY ==
--- OUTSIDE RECORDS SUMMARY | 2024-08-15 11:17 | XMS_ITS | Clinical Summary ---
Author Organization [facility] Address [address] [place] [id number] Care Team Providers Care Crematory Attendant Name Role Phone Nehemias Muhammad MD Primary Care Provider [phone] Allergies Active Allergy Reactions Criticality Noted Date Comments Sulfa (Sulfonamide Antibiotics) Other (See comments) Reaction: SEE ALLERGY COM, , Medications acetaminophen (TYLENOL) 325 mg tabletIndicati ons:Fever Take 2 tablets (650 mg total) by mouth every 4 (four) hours as needed for pain 30 tablet 9 Active atorvastatin (LIPITOR) 40 mg tablet Take 1 tablet (40 mg total) by mouth daily 30 tablet 3 9 Active Additional Information Patient not taking.Reported on 07/20/2024 amLODIPine (NORVASC) 2.5 mg tablet Take 1 tablet (2.5 mg total) by mouth daily 5 Active levETIRAcetam (KEPPRA) 1,000 mg tablet Take 1 tablet (1,000 mg total) by mouth 2 (two) times a day 180 tablet 3 5 07/21/19 26 Active levETIRAcetam (KEPPRA) 1,000 mg tablet Take 1 tablet (1,000 mg total) by mouth 2 (two) times a day 180 tablet 5 07/21/19 25 Discontin ued(Reord er) Active Problems Problem Noted Date Diagnosed Date 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 10/12/2018 Lacunar infarct, 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 Hyperlipidemia 07/06/2018 History of pulmonary embolism 07/06/2018 CKD (chronic kidney disease) stage 3, GFR 30-59 ml/min 07/06/2018 Abnormal brain MRI 07/06/2018 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 Encounters Date Type Department Care Team Description 08/11/2024 5:02 PM CDT - 08/11/2024 11:59 PM CDT Hospital Encounter [facility] [address] [place] [id number] Seizure disorder (HCC); Abnormal head CT Discharge Disposition: Discharge to home or self care 07/20/2024 9:00 AM CDT Office Visit [address] [facility] [address] [place] [phone] Kofi Floyd MD Seizure disorder (HCC) (Primary Dx); Abnormal head CT 06/21/[address] [facility] [address] [place] [phone] Kofi Floyd MD 06/14/2024 7:12 PM CDT - 06/14/2024 11:59 PM CDT Hospital Encounter [facility] ([facility]) [address] [place] [id number] Discharge Disposition: Discharge to home or self care 06/14/2024 Documentation [facility] Epilepsy [address] [place] [address] [facility] [address]th [place] [phone] scan 05/27/[address] [facility] [address] [place] [address] Kofi Floyd MD Test Results; CT Scan Disk Request from Last 3 Months Surgical History Surgery Date Site/Laterality Comments KNEE SURGERY Knee Surgery - Both knees; 3 & 5 years ago (Added by TW Conv) [place] TRURL ELECTROSURG RESCJ PROSTATE BLEED COMPLETE Transurethral Resection Of Prostate (TURP) - 12/20/2007 (Added by TW Conv) ANGIO SELECTIVE INTERNAL CAROTID LEFT 07/08/2018 Left Medical History Medical History Date Comments Personal history of other en docrine, nutritional and metabolic disease History of hyperlipi demia - (Added by TW Conv) Hypercholesteremia History of DVT (deep vein thrombosis) DVT/PE 5-6 yrs ago-study drug blind study--tx with either coumadin or apaxiban for 6 months. History of pulmonary embolism DV T/PE 5-6 yrs ago-study drug blind study--tx with either coumadin or apaxiban for 6 months. Family History Medical History Relation Name Comments Diabetes Mother Hypertension Mother Coronary artery disease Sister Relation Name Status Comments Mother Sister Social History Tobacco Use Types Packs/Day Years Used Date Smoking Tobacco: Former Smokeless Tobacco: Never Tobacco Cessation:Counseling Given: Not Answered Comments:Quit around 16 yrs ago after smoking around 40 years. 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 Gender Identity Not on file Sexual Orientation Not on file Obstetrics History Last Filed Vital Signs Vital Sign Reading Time Taken Comments Blood Pressure 145/66 07/20/2024 8:39 AM CDT Pulse 55 07/20/2024 8:39 AM CDT Temperature 36.4 C (97.6 F) 04/25/2019 2:43 PM CDT Respiratory Rate 23 07/09/2018 12:00 PM CDT Oxygen Saturation 98% 10/12/2018 9:49 AM CDT Inhaled Oxygen Concentration - - Weight 64.4 kg (142 lb) 08/11/2024 5:23 PM CDT Height 175.3 cm (5' 9) 08/11/2024 5:23 PM CDT Body Mass Index 20.97 08/11/2024 5:23 PM CDT Plan of Treatment Health Maintenance Due Date Last Done Comments Fall Risk Assessment 1940 DTaP/Tdap/Td Vaccine (1 - Tdap) 11/06/1950 Hepatitis B Screening 11/06/1957 Pneumococcal vaccine 65+ (1 of 1 - PCV) 11/06/1989 Zoster Vaccine (1 of 2) 11/06/1989 Well Visit 65+ 11/06/2004 Depression Screening 07/08/2019 07/07/2018 Influenza Vaccine (#1) 2024 02/17/2012 Medical Devices Implanted Type Area Buckle Stapler Device Identifier Shelf Expiration Date Model / Serial / Lot [employer] 07314-30 Starclose Se 6fr Clip Vascular Device Closure Nitinol Sterile - [id number] Implanted:Qty: 1 on 07/08/2018 at [facility] [employer] [id number] [id number] / / Procedures Procedure Name Priority Date/Time Associated Diagnosis Comments MRI BRAIN EPILEPSY W WO CONTRAST Schedule Routine, Read Routine (OP Routine) 08/11/2024 6:18 PM CDT Seizure disorder (HCC) Abnormal head CT NEURO CT OUTSIDE REFERENCE Routine 06/14/2024 7:12 PM CDT from Last 3 Months Results * MRI Brain Epilepsy W WO Contrast (08/11/2024 6:18 PM CDT) Anatomical Region Laterality Modality Head and Neck N/A Magnetic Resonan ce 08/12/2024 5:09 PM CDT Impressions 08/12/2024 5:09 PM CDT 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 Likewise there are scattered supra and infratentorial chronic microhemorrhages. Significant atrophy of the bilateral hippocampi is visualized with associated abnormal symmetrical bilateral FLAIR signal. 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 Electronically signed by: Leonarda Arnold M.D. Narrative 08/12/2024 5:09 PM CDT EXAMINATION: Magnetic resonance imaging (MRI) of the brain and brainstem without and with contrast HISTORY: Seizure, abnormal neuro exam; seizure disorder and fluid collection on CT Dx: Seizure disorder (HCC) [G40.909 (ICD-10-CM)]; Abnormal head CT [R93.0 (ICD-10-CM)] TECHNIQUE: Multiplanar multi-weighted MRI of the brain and brainstem was performed without and with intravenous contrast using the seizure protocol. This included high resolution 3D T1-weighted and T2-FLAIR imaging and detailed T2-weighted imaging of the hippocampi and temporal lobes. Contrast information: 12 mL Gadoterate Meglumine IV COMPARISON: MR brain dated 07/05/2018. Outside head CT dated 04/07/2024. 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 Likewise there are scattered supra and infratentorial chronic microhemorrhages. Significant atrophy of the bilateral hippocampi is visualized with associated abnormal symmetrical bilateral FLAIR signal. 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 The superior sagittal sinus demonstrates normal venous flow. The corpus callosum is normal in shape and signal intensity. The posterior fossa is unremarkable. The pituitary and sella are normal. The brainstem and craniocervical junction are unremarkable. Diffusion weighted images reveal no hyperintensities to suggest acute cerebral infarction. The ventricles are without evidence of hydrocephalus. The paranasal sinuses are normal. The visualized portions of the mastoids are unremarkable. The orbits appear normal. Normal flow voids are demonstrated in the carotid arteries and basilar artery. Multilevel degenerative changes of the visualized cervical spine. Procedure Note Leonarda Pond MD - 08/12/2024 EXAMINATION: Magnetic resonance imaging (MRI) of the brain and brainstem without and with contrast HISTORY: Seizure, abnormal neuro exam; seizure disorder and fluid collection on CT Dx: Seizure disorder (HCC) [G40.909 (ICD-10-CM)]; Abnormal head CT [R93.0 (ICD-10-CM)] TECHNIQUE: Multiplanar multi-weighted MRI of the brain and brainstem was performed without and with intravenous contrast using the seizure protocol. This included high resolution 3D T1-weighted and T2-FLAIR imaging and detailed T2-weighted imaging of the hippocampi and temporal lobes. Contrast information: 12 mL Gadoterate Meglumine IV COMPARISON: MR brain dated 07/05/2018. Outside head CT dated 04/07/2024. 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 Likewise there are scattered supra and infratentorial chronic microhemorrhages. Significant atrophy of the bilateral hippocampi is visualized with associated abnormal symmetrical bilateral FLAIR signal. 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 The superior sagittal sinus demonstrates normal venous flow. The corpus callosum is normal in shape and signal intensity. The posterior fossa is unremarkable. The pituitary and sella are normal. The brainstem and craniocervical junction are unremarkable. Diffusion weighted images reveal no hyperintensities to suggest acute cerebral infarction. The ventricles are without evidence of hydrocephalus. The paranasal sinuses are normal. The visualized portions of the mastoids are unremarkable. The orbits appear normal. Normal flow voids are demonstrated in the carotid arteries and basilar artery. Multilevel degenerative changes of the visualized cervical spine. 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 Likewise there are scattered supra and infratentorial chronic microhemorrhages. Significant atrophy of the bilateral hippocampi is visualized with associated abnormal symmetrical bilateral FLAIR signal. 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 Electronically signed by: Leonarda Arnold M.D. Kofi Floyd MD IMG MRI PROCEDURES Fin al Result * Neuro CT Outside Reference (06/14/2024 7:12 PM CDT) Impressions [facility] - 06/14/2024 7:12 PM CDT These images are for Reference purposes only and have not been reviewed by [facility]iology. There will be no report generated by a [facility] Radiologist. Narrative [facility] - 06/14/2024 7:12 PM CDT EXAMINATION: Images For Reference Purposes Only Kofi Floyd MD IMG CT PROCEDURES Marcella l Result [facility] from Last 3 Months Insurance [facility] Advance Directives For more information, please contact: [phone] * Full Code (Latest Code Status on File) Date Activated Date Inactivated Comments 07/07/2018 3:36 PM 07/09/2018 5:16 PM * Full Code Date Activated Date Inactivated Comments 07/05/2018 10:47 PM 07/07/2018 3:02 PM Care Teams Crematory Attendant Relationship Specialty Start Date End Date Nehemias Muhammad MD [address] [place] [address] PCP - General Family Practice 04/25/24
--- OUTSIDE RECORDS SUMMARY | 2024-08-15 11:17 | XMS_ITS | Referral Summary ---
Author Organization [facility] Address [address] [place] [address] Care Team Providers Care Virtual Assistant For Advertisers Name Role Phone Nehemias Muhammad MD Primary Care Provider [phone] Encounters Date Type Department Care Team Description 08/11/2024 5:02 PM CDT - 08/11/2024 11:59 PM CDT Hospital Encounter [facility] [address] [place] [id number] Seizure disorder (HCC); Abnormal head CT Discharge Disposition: Discharge to home or self care 07/20/2024 9:00 AM CDT Office Visit [facility] [address] [place] [address] for Advanced Medicine 6th [place] [id number] Kofi Floyd MD Seizure disorder (HCC) (Primary Dx); Abnormal head CT 06/21/[address] [facility] [address] [place] [address] for Advanced Medicine 6th [place] [address] Kofi Floyd MD 06/14/2024 7:12 PM CDT - 06/14/2024 11:59 PM CDT Hospital Encounter [facility] ([facility]) [address] [place] [address] Discharge Disposition: Discharge to home or self care 06/14/[address] [facility] [address] [place] [address] Advanced Medicine [address]th [place] [address] [address] scan 05/27/[address] 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 Electronically signed by: Leonarda Arnold M.D. us Kofi Floyd MD IMG MRI PROCEDURES Fin al Result * Neuro CT Outside Reference (06/14/2024 7:12 PM CDT) Impressions [facility] - 06/14/2024 7:12 PM CDT These images are for Reference purposes only and have not been reviewed by [facility]. There will be no report generated by a [facility] Radiologist. Narrative [facility] - 06/14/2024 7:12 PM CDT EXAMINATION: Images For Reference Purposes Only us Kofi Floyd MD IMG CT PROCEDURES Marcella l Result [facility] from Last 3 Months Insurance [facility] Advance Directives For more information, please contact: [phone] * Full Code (Latest Code Status on File) Date Activated Date Inactivated Comments 07/07/2018 3:36 PM 07/09/2018 5:16 PM * Full Code Date Activated Date Inactivated Comments 07/05/2018 10:47 PM 07/07/2018 3:02 PM Care Teams Virtual Assistant For Advertisers Relationship Specialty Start Date End Date Nehemias Muhammad MD [address] [place] [address] PCP - General Family Practice 04/25/24
--- OUTSIDE RECORDS SUMMARY | 2024-08-15 11:17 | XMS_ITS | Continuity of Care Document ---
Author Organization [facility] Address [address] [place] [address] [address] [place] [address] Phone Care Team Providers Care Cutting Torch Operator Name Role Phone Tania Gibbons Unavailable Unavailable Procedures Procedure Date Office/outpatient Visit, [facility] Advance Directives Directive Yes / No Effective Date File Name No Information Encounters Encounter Description Practice Location Reason(s) For Visit Diagnoses Date Provider Providers Copied on Encounter Office/outpat ient Visit, [facility], [address] [place] [address] [address], [place], [place], [id number], tel:[phone] [facility] No Information [address] [facility] [place] , [address], [place], [place], [facility], [place]. tel:[phone] Referring Provider: Lux Harris MD, [address] [place], [place], [facility]. tel:[phone] Family History Family Member Type Diagnosis Age At Onset No Information Payers Payer name Insurance type Covered libertarian ID Authoriza tion(s) [place] [id number] Social History Type Description Quantity Date Captured [...]
[2024-08-15 13:21] LABS: Hematocrit 47.0 % (42.0-52.0); Hemoglobin 15.7 g/dL (14.0-18.0); Immature Granulocyte Percent A 0.2 % (0-0.5); Lymphocytes Absolute Auto 1.30 K/mm3 (0.9-3.2); Mean Corpuscular HGB Conc 33.4 g/dl (32-36); Mean Corpuscular Hemoglobin 33.3 pg (26-34); Mean Corpuscular Volume 99.8 fl (80-100); Nucleated Red Blood Cells Absolute Auto 0.000 K/mm3 (0.0-0.012); Nucleated Red Blood Cells Perc 0.0 % (0.0-0.2); Platelet Count Result 252 k/mm3 (150-375); Red Blood Count 4.71 M/mm3 (4.6-6.20); White Blood Count 5.3 K/mm3 (4.5-10.0)
[2024-08-15 13:43] LABS: Alanine Aminotransferase 17 U/L (6-50); Albumin Level 4.4 g/dL (3.5-5.1); Alkaline Phosphatase 61 U/L (38-126); Anion Gap 8 mmol/L (4-12); Aspartate Amino Transferase 44 U/L (17-59); Bilirubin,Total 0.5 mg/dL (0.2-1.3); Blood Urea Nitrogen 22 mg/dL (9-20); Calcium 9.7 mg/dL (8.4-10.2); Carbon Dioxide 28 mmol/L (22-30); Chloride 107 mmol/L (98-107); Estimated Glomerular Filt Rate > 60; Glucose 96 mg/dL (65-110); Potassium 4.6 mmol/L (3.4-5.0); Sodium 143 mmol/L (137-145); Total Protein 7.8 g/dL (6.3-8.2)
[2024-08-15 14:35] LABS: Vitamin B12 226.0 pg/mL (239-931)
[2024-08-19 00:59] LABS: Apolipoprotein B. 135 mg/dL
== END 2024-08-15 11:03 | disposition home or self-care (01) ==
PROVIDERS: PCP Family Medicine; Visit Provider Family Medicine
DX: R73.09 Other abnormal glucose (principal); I10 Essential (primary) hypertension; E78.49 Other hyperlipidemia; H81.399 Other peripheral vertigo, unspecified ear; Z00.00 Encounter for general adult medical examination without abnormal findings; Z87.891 Personal history of nicotine dependence
CPT/HCPCS: 36415; 80053; 82172; 82607; 85025

== ENCOUNTER 2025-01-03 14:41 | Outpatient (CLI) | payer OTHER, SELFPAY ==
--- NOTE | ~2025-01-03 | XR_ITS ---
XR_[id number]_CR Indication: M54.10 - Radiculopathy, site unspecified Comparison: None Findings: Grade 1 anterolisthesis of C4 on C5, no fracture. Severe loss of disc height throughout. Soft tissues unremarkable Impression: No acute abnormality. Reviewed, dictated and finalized at location [facility] Impression: No acute abnormality.
--- OUTSIDE RECORDS SUMMARY | 2025-01-03 16:29 | XMS_ITS | Clinical Summary ---
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, 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 Hyperlipidemia 07/06/2018 History of pulmonary embolism 07/06/2018 CKD (chronic kidney disease) stage 3, GFR 30-59 ml/min 07/06/2018 Abnormal brain MRI 07/06/2018 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 Surgical History Surgery Date Site/Laterality Comments KNEE SURGERY Knee Surgery - Both knees; 3 & 5 years ago (Added by TW Conv) AL TRURLetty ELECTROSURG RESCJ PROSTATE BLEED COMPLETE Transurethral Resection [...] on file 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 Gender Identity Not on file Sexual Orientation [...] 2024 02/17/2012 Medical Devices Implanted Type Area Relations Coordinator Device Identifier Shelf Expiration Date Model / Serial / Lot Lance Vascular [id number] Starclose Se 6fr Clip Vascular Device Closure Nitinol Sterile - [id number] Implanted:Qty: 1 on 07/08/2018 at [facility] [employer] 1467 10-10 / / Insurance [facility] Advance Directives For more information, please contact: [phone] * Full Code (Latest Code Status on File) Date Activated Date Inactivated Comments 07/07/2018 3:36 PM 07/09/2018 5:16 PM * Full Code Date Activated Date Inactivated Comments 07/05/2018 10:47 PM 07/07/2018 3:02 PM Care Teams Interface Engineer Relationship Specialty Start Date End Date Nehemias Muhammad MD [address] [place] [address] PCP - General Family Practice 04/25/24
== END 2025-01-03 14:42 | disposition home or self-care (01) ==
PROVIDERS: PCP Family Medicine; Visit Provider Nurse Practitioner Family
DX: M54.2 Cervicalgia (principal)
CPT/HCPCS: 72040